=== PATIENT | male | born 1995 | race Caucasian/White ===

== ENCOUNTER 2018-03-06 00:50 | Emergency (ER) | payer BC, OTHER ==
[~2018-03-06] VITALS: Ht 195.6 cm; Wt 113.4 kg
[2018-03-06] MEDS ORDERED: ONDANSETRON 4 MG (ZOFRAN) ORAL DISSOLVE TAB SL STA (01:20)
[2018-03-06] MEDS ORDERED: LIDOCAINE 2% VISCOUS 15 ML UDC PO ONE (01:30)
[2018-03-06] MEDS ORDERED: ANTACID SUSP 30 ML UDC (MYLANTA) PO ONE (01:30)
[2018-03-06] MEDS ORDERED: NS IV 1000 ML 1,000 ML IV ONE (02:05)
[2018-03-06] MEDS ORDERED: fentaNYL INJECTION 100 MCG/2 ML AMP IVP ONE (02:15)
[2018-03-06] MEDS ORDERED: RX-ONDANSETRON 4 MG ODT (ZOFRAN) PPK #4 SL STA (02:18)
[2018-03-06] MEDS ORDERED: OMEP20TA7 PO (02:23)
[2018-03-06] MEDS ORDERED: FAMO-119 PO (02:23)
[2018-03-06] MEDS ORDERED: ONDA4TAB8 SL (02:23)
--- NOTE | 2018-03-06 02:24 | ED Abdominal Pain ---
General Chief Complaint: Abdominal/GI Problems Stated Complaint: SEVERE ABD PAIN Nursing Triage Note: PATIENT STATES THAT HE HAS BEEN HAVING ABDOMINAL PAIN X2 DAYS. PAIN IS IN THE UPPER ABDOMEN. HE HAS HAD NAUSEA, CONSTIPATION AND DIARRHEA. Sepsis Screen: No Definite Risk Source of Information: Patient Exam Limitations: No Limitations History of Present Illness Date Seen by Provider: Mar 06, 2018 Time Seen by Provider: 01:12 Initial Comments This 22 year old young man presents with epigastric pain for 2 days with nausea. He denies fever. He has alternated between constipation and soft stools recently. 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 Pain is worse immediately after swallowing and food sometimes seems to get "hung up" near the distal esophagus. He denies any alcohol consumption. Pain has been waxing and waning. Denies bloody stools. No vomiting. Allergies and Home Medications Allergies Coded Allergies: No Known Drug Allergies (Unverified , 03/06/18) Home Medications Famotidine 20 Mg Tablet, 20 MG PO BID Prescribed by: COLBY NORTON on 03/06/18222 Omeprazole 20 Mg Tablet.dr, 20 MG PO BID Prescribed by: COLBY NORTON on 03/06/18222 Ondansetron 4 Mg Tab.rapdis, 4 MG SL Q4H PRN for NAUSEA/VOMITING-1ST LINE Prescribed by: COLBY NORTON on 03/06/18222 Patient Home Medication List Home Medication List Reviewed: Yes Review of Systems Constitutional: no symptoms reported EENTM: No Symptoms Reported Respiratory: No Symptoms Reported Cardiovascular: No Symptoms Reported Gastrointestinal: See HPI Genitourinary: No Symptoms Reported Musculoskeletal: no symptoms reported Skin: no symptoms reported Psychiatric/Neurological: No Symptoms Reported Endocrine: No Symptoms Reported Hematologic/Lymphatic: No Symptoms Reported Past Vtxibtg-Iiyylq-Qutyal Hx Past Med/Social Hx: Reviewed and Corrections made Patient Social History Alcohol Use: Denies Use Recreational Drug Use: No Smoking Status: Never a Smoker 2nd Hand Smoke Exposure: No Recent Foreign Travel: No Contact w/Someone Who Travel: No Recent Infectious Disease Expo: No Recent Hopitalizations: No Physical Abuse: No Sexual Abuse: No Seasonal Allergies Seasonal Allergies: No Past Medical History Surgeries: Yes (FORIEGN BODY REMOVAL (HOOK) from near rectum from accidental trauma jumping in a pool) Respiratory: No Cardiac: No Neurological: No Genitourinary: No Gastrointestinal: No Musculoskeletal: No Endocrine: No HEENT: No Cancer: No Psychosocial: No Nursing Suicide Risk Score: 0 Blood Disorders: No Physical Exam Vital Signs Vital Signs - First Documented 03/06/18 01:12 Temp 98.0 Pulse 46 Resp 18 B/P (MAP) 140/95 (110) Pulse Ox 99 Capillary Refill : Less Than 3 Seconds Height/Weight/BMI Height: 6'5.00" Weight: 250lbs. 0oz. 113.894075tn; BMI Method:Stated General Appearance: WD/WN, mild distress HEENT: PERRL/EOMI, normal ENT inspection, pharynx normal Neck: normal inspection Respiratory: lungs clear, normal breath sounds, no respiratory distress Cardiovascular: regular rate, rhythm, no edema, no murmur Gastrointestinal: normal bowel sounds, soft, tenderness (epigastric) Extremities: normal inspection, no pedal edema Neurologic/Psychiatric: hands and dial inspector II-XII nml as tested, no motor/sensory deficits, alert, normal mood/affect, oriented x 3 Skin: normal color, warm/dry Progress/Results/Core Measures Results/Orders My Orders Orders - COLBY MIXON MD Ondansetron Oral Dissolve Tab (Zofran (03/06/18 01:20) Lidocaine 2% Viscous 15 Ml (Xylocaine Vi (03/06/18 01:30) Antacid Suspension (Mylanta Suspension (03/06/18 01:30) Fentanyl Injection (Sublimaze Injection (03/06/18 02:15) Ns Iv 1000 Ml (Sodium Chloride 0.9%) (03/06/18 02:05) Clindamycin 900 Mg/50 Ml Ivpb (Cleocin P (03/06/18 06:00) Pantoprazole Tablet (Protonix Tablet) (03/06/18 02:30) Rx-Ondansetron Po (Rx-Zofran Po) (03/06/18 02:18) Medications Given in ED Vital Signs/I&O 03/06/18 03/06/18 01:12 02:30 Temp 98.0 98.0 Pulse 46 46 Resp 18 18 B/P (MAP) 140/95 (110) 140/95 (110) Pulse Ox 99 99 Blood Pressure Mean: 110 Progress Progress Note : Progress Note Patient was given SL Zofran followed by GI cocktail. This provided moderate relief. Further work-up was not felt necessary at this time and patient was treated for gastritis. Departure Impression Primary Impression: Upper abdominal pain Additional Impressions: Gastritis Qualified Codes: K29.00 - Acute gastritis without bleeding Nausea Disposition: HOME, SELF-CARE Condition: Improved Departure-Patient Inst. Decision time for Depature: 02:20 Referrals: [facility] (PCP) Primary Care Physician Patient Instructions: Acute Abdomen (Belly Pain), Adult (DC), Gastritis (DC) Add. Discharge Instructions: Take omeprazole and Pepcid (famotidine) twice daily as prescribed for the next 2 weeks. Continue these medications even if your stomach feels better. Use Zofran (ondansetron) dissolved under the tongue every 4 hours as needed for nausea and vomiting. Avoid the following: Overeating, eating close to bedtime, caffeine, carbonation , chocolate, citrus fruits and juices, tomato products, mints, alcohol, tobacco , NSAID medications such as ibuprofen or naproxen, spicy foods, excessive fatty or greasy foods, or anything else you know irritates your stomach. For pain you may take Tylenol (acetaminophen) up to 1000 mg every 6 hours as needed. Return to the emergency room if symptoms are worsening. Follow-up at the [facility] if not improving as expected. All discharge instructions reviewed with patient and/or family. Voiced understanding. Scripts Ondansetron (Zofran Odt) 4 Mg Tab.rapdis 4 MG SL Q4H PRN for NAUSEA/VOMITING-1ST LINE, #10 TAB Prov: COLBY MIXON MD 03/06/18 Omeprazole (Omeprazole) 20 Mg Tablet.dr 20 MG PO BID, #30 TAB Prov: COLBY MIXON MD 03/06/18 Famotidine (Pepcid) 20 Mg Tablet 20 MG PO BID, #30 TAB Prov: COLBY MIXON MD 03/06/18 COLBY MIXON MD Mar 06, 2018 02:24
[2018-03-06 02:30] VITALS: BP 140/95
[2018-03-06] MEDS ORDERED: PANTOPRAZOLE 40 MG (PROTONIX) TAB PO ONE (02:30)
[2018-03-06] MEDS ORDERED: CLINDAMYCIN 900 MG/50 ML IVPB 50 ML IV SCH (06:00)
== END 2018-03-06 02:32 | disposition home or self-care (01) ==
LOC: ER 00:53
DX: K29.70 Gastritis, unspecified, without bleeding (principal)
CPT/HCPCS: 99283